=== PATIENT | male | born 1950 | race African-American/Black ===

== ENCOUNTER 2019-11-19 11:55 | Inpatient (IN) | payer MEDICARE, OTHER ==
[~2019-11-19] VITALS: Ht 177.8 cm; Wt 108.6 kg
[~2019-11-19 11:55] MED LIST: ASPI-482 PO; GABA300C18 PO; HYDR-2145 PO; IBUP-1027 PO; PROVENTIL HFA6.7 G1 IH
[2019-11-19] MEDS ORDERED: MAGNESIUM SULFATE 2GM 50 ML IV ONE (12:15)
[2019-11-19] MEDS ORDERED: methylPREDNISolone SOD SUCC PF 125 MG/2 ML VIAL. IV ONE (12:15)
[2019-11-19] MEDS ORDERED: IPRATRPIUM/ALBUTEROL 0.5/2.5MG 3 ML NEBU. NEB ONE (12:15)
[2019-11-19] MEDS ORDERED: IV NORMAL SALINE 1000ML BAG 1,000 ML IV ONE (12:15)
[2019-11-19 12:21] LABS: BASE EXCESS ABG -8 mmol/L (-3-3); HCO3 ABG 22 mmol/L (21-28); PO2 ABG 405 mmHg (65-108); SAT O2 ABG 99 % (92-99)
[2019-11-19 12:24] LABS: BASO % 1 % (0-3); EOS # 0.4 x10^3/uL (0.0-0.7); EOS % 8 % (0-3); HEMATOCRIT 44.6 % (39.0-53.0); HEMOGLOBIN 14.4 g/dL (13.0-17.5); LYMPH # 1.1 x10^3/uL (1.0-4.8); LYMPH % 24 % (24-48); MEAN CORPUSCULAR HEMOGLOBIN 30 pg (25-35); MEAN CORPUSCULAR HGB CONC 32 g/dL (31-37); MEAN CORPUSCULAR VOLUME 94 fL (79-100); MONO # 0.7 x10^3/uL (0.0-1.1); MONO % 15 % (0-9); NEUT # 2.4 x10^3/uL (1.8-7.7); NEUT % 52 % (31-73); PLATELET COUNT 204 x10^3/uL (140-400); RED BLOOD COUNT 4.76 x10^6/uL (4.30-5.70); RED CELL DISTRIBUTION WIDTH 14.9 % (11.5-14.5); WHITE BLOOD COUNT 4.7 x10^3/uL (4.0-11.0)
[2019-11-19 12:26] LABS: FIO2 ABG 100; PCO2 ABG 63 mmHg (35-46)
--- NOTE | 2019-11-19 12:26 | PHYS DOC ---
Past Medical History Past Medical History: Asthma, Hypertension Adult General Chief Complaint Chief Complaint: SHORTNESS OF BREATH HPI HPI Patient is a 69 year old male with history of hypertension, asthma, chronic renal insufficiency, pulmonary embolism on Eliquis who presents via EMS with complaint of shortness of breath. Patient complaining of shortness of breath several days that getting constant for the last 2 days associated with dry cough without chest pain, fever and chills, sick contact. EMS reported that patient had O2 sats of 70s that increased to 98 with albuterol treatment. Patient had O2 sat of 70s at arrival to ER at room air was started on nonrebreather. Review of Systems Review of Systems Constitutional: Denies fever or chills [] Eyes: Denies change in visual acuity, redness, or eye pain [] HENT: Reports nasal congestion Respiratory: Reports cough and shortness of breath Cardiovascular: No additional information not addressed in HPI [] GI: Denies abdominal pain, nausea, vomiting, bloody stools or diarrhea [] : Denies dysuria or hematuria [] Musculoskeletal: Denies back pain or joint pain [] Integument: Denies rash or skin lesions [] Neurologic: Denies headache, focal weakness or sensory changes [] Endocrine: Denies polyuria or polydipsia [] All other systems were reviewed and found to be within normal limits, except as documented in this note. Current Medications Current Medications Current Medications Medications (Trade) Dose Ordered Sig/Juanis Start Time Stop Time Status Last Admin Dose Admin Albuterol/ Ipratropium (Duoneb) 3 ml 1X ONCE 11/19/19 12:15 11/19/19 12:29 DC 11/19/19 12:25 3 ML Magnesium Sulfate 50 ml @ 25 mls/hr 1X ONCE 11/19/19 12:15 11/19/19 14:14 11/19/19 12:43 25 MLS/HR Methylprednisolone Sodium Succinate (SOLU-Medrol 125MG VIAL) 125 mg 1X ONCE 11/19/19 12:15 11/19/19 12:29 DC 11/19/19 12:43 125 MG Sodium Chloride 1,000 ml @ 1,000 mls/hr 1X ONCE 11/19/19 12:15 11/19/19 13:14 DC 11/19/19 12:43 1,000 MLS/HR Allergies Allergies Allergies Coded Allergies Type Severity Reaction Last Updated Verified lisinopril Allergy Severe angioedema 11/19/19 Yes Physical Exam Physical Exam Constitutional: Well developed, well nourished, moderate distress, non-toxic appearance. [] HENT: Normocephalic, atraumatic, bilateral external ears normal, oropharynx moist, no oral exudates, nose normal. [] Eyes: PERRLA, EOMI, conjunctiva normal, no discharge. [] Neck: Normal range of motion, no tenderness, supple, no stridor. [] Cardiovascular:Heart rate regular rhythm, no murmur [] Lungs & Thorax: Respiratory distress with intercostal retraction and expiratory wheezing Abdomen: Bowel sounds normal, soft, no tenderness, no masses, no pulsatile masses. [] Skin: Warm, dry, no erythema, no rash. [] Back: No tenderness, no CVA tenderness. [] Extremities: No tenderness, no cyanosis, no clubbing, ROM intact, no edema. [] Neurologic: Alert and oriented X 3, normal motor function, normal sensory function, no focal deficits noted. [] Psychologic: Affect normal, judgement normal, mood normal. [] Current Patient Data Vital Signs Vital Signs Date Time Temp Pulse Resp B/P (MAP) Pulse Ox O2 Delivery O2 Flow Rate FiO2 11/19/19 12:35 91 17 163/100 (121) 96 Nasal Cannula 2.0 11/19/19 12:10 98.5 98.5 Lab Values Laboratory Tests Test 11/19/19 12:03 11/19/19 12:06 11/19/19 13:17 White Blood Count 4.7 x10^3/uL (4.0-11.0) Red Blood Count 4.76 x10^6/uL (4.30-5.70) Hemoglobin 14.4 g/dL (13.0-17.5) Hematocrit 44.6 % (39.0-53.0) Mean Corpuscular Volume 94 fL (79-100) Mean Corpuscular Hemoglobin 30 pg (25-35) Mean Corpuscular Hemoglobin Concent 32 g/dL (31-37) Red Cell Distribution Width 14.9 % (11.5-14.5) H Platelet Count 204 x10^3/uL (140-400) Neutrophils (%) (Auto) 52 % (31-73) Lymphocytes (%) (Auto) 24 % (24-48) Monocytes (%) (Auto) 15 % (0-9) H Eosinophils (%) (Auto) 8 % (0-3) H Basophils (%) (Auto) 1 % (0-3) Neutrophils # (Auto) 2.4 x10^3/uL (1.8-7.7) Lymphocytes # (Auto) 1.1 x10^3/uL (1.0-4.8) Monocytes # (Auto) 0.7 x10^3/uL (0.0-1.1) Eosinophils # (Auto) 0.4 x10^3/uL (0.0-0.7) Basophils # (Auto) 0.0 x10^3/uL (0.0-0.2) Prothrombin Time 13.5 SEC (11.7-14.0) Prothrombin Time INR 1.1 (0.8-1.1) Sodium Level 143 mmol/L (136-145) Potassium Level 4.6 mmol/L (3.5-5.1) Chloride Level 109 mmol/L (98-107) H Carbon Dioxide Level 29 mmol/L (21-32) Anion Gap 5 (6-14) L Blood Urea Nitrogen 28 mg/dL (8-26) H Creatinine 2.3 mg/dL (0.7-1.3) H Estimated GFR (Cockcroft-Gault) 34.5 BUN/Creatinine Ratio 12 (6-20) Glucose Level 127 mg/dL (70-99) H Lactic Acid Level 0.7 mmol/L (0.4-2.0) Calcium Level 8.7 mg/dL (8.5-10.1) Magnesium Level 2.0 mg/dL (1.8-2.4) Total Bilirubin 0.3 mg/dL (0.2-1.0) Aspartate Amino Transferase (AST) 26 U/L (15-37) Alanine Aminotransferase (ALT) 18 U/L (16-63) Alkaline Phosphatase 150 U/L (46-116) H Creatine Kinase 239 U/L (39-308) Troponin I Quantitative < 0.017 ng/mL (0.000-0.055) AY-Tol-L-Type Natriuretic Peptide 85 pg/mL (0-124) Total Protein 7.6 g/dL (6.4-8.2) Albumin 3.3 g/dL (3.4-5.0) L Albumin/Globulin Ratio 0.8 (1.0-1.7) L O2 Saturation 99 % (92-99) Arterial Blood pH 7.15 (7.35-7.45) *L Arterial Blood pCO2 at Patient Temp 63 mmHg (35-46) *H Arterial Blood pO2 at Patient Temp 405 mmHg (65-108) H Arterial Blood HCO3 22 mmol/L (21-28) Arterial Blood Base Excess -8 mmol/L (-3-3) L FiO2 100 Influenza Type A Antigen Negative (NEGATIVE) Influenza Type B Antigen Negative (NEGATIVE) Laboratory Tests 11/19/19 12:03 Laboratory Tests 11/19/19 12:03 EKG EKG EKG interpreted by me. EKG at 1208 showed normal sinus rhythm at rate of 93, abnormal left axis deviation, left anterior fascicular block, no acute ST and T- wave elevation. Radiology/Procedures Radiology/Procedures [facility] [address] [place], [place] [id number] IMAGING REPORT Signed PATIENT: JAMIE TEIXEIRA ACCOUNT: [id number] : 1950 LOCATION: ER AGE: 69 SEX: M EXAM STATUS: REG ER ORD. PHYSICIAN: JOSE ALFREDO FERRARI MD REASON: shortness of breath PROCEDURE: PORTABLE CHEST 1V PORTABLE CHEST 1V History: Shortness of breath Comparison: None. Findings: No consolidation or pleural effusion. Normal heart size. No pneumothorax. Impression: 1. No acute cardiopulmonary process. Electronically signed by: Armando Camacho DO (11/19/2019 12:52 PM) [facility] DICTATED and SIGNED BY: ARMANDO CAMACHO DO DATE: 11/19/19 1257 Course & Med Decision Making Course & Med Decision Making Pertinent Labs and Imaging studies reviewed. (See chart for details) Patient of patient in ER showed 69-year-old male patient with history of PE and asthma brought in by EMS because of respiratory distress. Patient started on no nrebreather after ABG was started on nasal cannula with improvement of his condition. Patient did not have leukocytosis or elevation of lactic acid. D- dimer is pending. Chest x-ray did not showed infiltration.Patient requiring admission for further evaluation and treatment. Discussed with Dr. Reyes at 1443 who is in agreement with admission. Discussed findings and plan with p terrence and family, who acknowledge understanding and agreement. Dragon Disclaimer Dragon Disclaimer This electronic medical record was generated, in whole or in part, using a voice recognition dictation system. Departure Departure Impression: Primary Impression: Acute respiratory distress Additional Impressions: Asthma exacerbation Chronic renal insufficiency Disposition: ADMITTED INPATIENT (@1344) Admitting Physician: JERMAIN (Dr. Reyes accepted admission at 1343) Condition: IMPROVED Referrals: NO PCP (PCP) Problem Qualifiers Additional Impressions: Asthma exacerbation Asthma severity: moderate Asthma persistence: unspecified Qualified Codes: J45.901 - Unspecified asthma with (acute) exacerbation Chronic renal insufficiency Chronic kidney disease stage: unspecified stage Qualified Codes: N18.9 - Chronic kidney disease, unspecified JOSE ALFREDO FERRARI MD Nov 19, 2019 12:26
[2019-11-19 12:32] LABS: CALCIUM 8.7 mg/dL (8.5-10.1); CREATININE 2.3 mg/dL (0.7-1.3); GFR 34.5; POTASSIUM 4.6 mmol/L (3.5-5.1); PROTHROMBIN TIME PATIENT 13.5 SEC (11.7-14.0)
[2019-11-19 12:47] LABS: ALBUMIN 3.3 g/dL (3.4-5.0); ALBUMIN/GLOBULIN RATIO 0.8 (1.0-1.7); TOTAL BILIRUBIN 0.3 mg/dL (0.2-1.0); TOTAL PROTEIN 7.6 g/dL (6.4-8.2)
--- NOTE | 2019-11-19 12:55 | RAD ---
PORTABLE CHEST 1V History: Shortness of breath Comparison: None. Findings: No consolidation or pleural effusion. Normal heart size. No pneumothorax. Impression: 1. No acute cardiopulmonary process. Electronically signed by: Armando Camacho DO (11/19/2019 12:52 PM) [facility]
--- NOTE | 2019-11-19 13:43 | PDOC1 ---
History and Physical Date of Admission Date of Admission DATE: 11/19/19 TIME: 13:43 Identification/Chief Complaint Chief Complaint SEEN IN ER , 69 year old male with history of hypertension, asthma, chronic renal insufficiency, pulmonary embolism on Eliquis who presents via EMS with complaint of shortness of breath. complaining of shortness of breath several days that getting constant for the last 2 days associated with dry cough denies chest pain, fever and chills, sick contact. EMS reported that patient had O2 sats of 70s that increased to 98 with albuterol treatment. Patient had O2 sat of 70s at arrival to ER at room air was started on nonrebreather. REPORTS HE HAS BEEN OUT OF HIS COREG X 2 WEEKS Past Medical History Past Medical History Past Medical History Past Medical History Past Medical History: Asthma, Hypertension SOCIAL HISTORY: The patient does not smoke, quit many years ago. Drinks alcohol maybe once a week on average. He is . He lives with his spouse and two children at home. 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 FAMILY HISTORY: htn Cardiovascular: HTN Infectious disease: No pertinent hx Family History Family History: High Cholestrol, Hypertension Social History Smoke: No ALCOHOL: none Drugs: None Current Medications Current Medications Current Medications Albuterol/ Ipratropium (Duoneb) 3 ml 1X ONCE NEB Last administered on 11/19/19at 12:25; Start 11/19/19 at 12:15; Stop 11/19/19 at 12:29; Status DC Methylprednisolone Sodium Succinate (SOLU-Medrol 125MG VIAL) 125 mg 1X ONCE IV Last administered on 11/19/19at 12:43; Start 11/19/19 at 12:15; Stop 11/19/19 at 12:29; Status DC Magnesium Sulfate 50 ml @ 25 mls/hr 1X ONCE IV Last administered on 11/19/19at 12:43; Start 11/19/19 at 12:15; Stop 11/19/19 at 14:14 Sodium Chloride 1,000 ml @ 1,000 mls/hr 1X ONCE IV Last administered on 11/19/19at 12:43; Start 11/19/19 at 12:15; Stop 11/19/19 at 13:14; Status DC Active Scripts Active Reported Proventil Hfa (Albuterol Sulfate) 6.7 Gm Hfa.aer.ad 6.7 Gm IH PRN Hydrochlorothiazide Tablet (Hydrochlorothiazide) 25 Mg Tablet 1 Tab PO DAILY Aspir 81 (Aspirin) 81 Mg Tablet.dr 1 Tab PO DAILY Gabapentin 300 Mg Capsule 300 Mg PO BID Ibuprofen 400 Mg Tablet 400 Mg PO BID PRN Allergies Allergies: Coded Allergies: lisinopril (Verified Allergy, Severe, angioedema, 11/19/19) ROS Review of System Review of Systems Review of Systems Constitutional: Denies fever or chills [] Eyes: Denies change in visual acuity, redness, or eye pain [] HENT: Reports nasal congestion Respiratory: Reports cough and shortness of breath Cardiovascular: No additional information not addressed in HPI [] GI: Denies abdominal pain, nausea, vomiting, bloody stools or diarrhea [] : Denies dysuria or hematuria [] Musculoskeletal: Denies back pain or joint pain [] Integument: Denies rash or skin lesions [] Neurologic: Denies headache, focal weakness or sensory changes [] Endocrine: Denies polyuria or polydipsia [] 14 PT systems were reviewed and found to be within normal limits, except as documented Respiratory: YES: Shortness of breath, Wheezing Physical Exam Physical Exam Physical Exam Physical Exam Constitutional: Well developed, well nourished, MILD distress, non-toxic appearance. [] HENT: Normocephalic, atraumatic, bilateral external ears normal, oropharynx moist, no oral exudates, nose normal. [] Eyes: PERRLA, EOMI, conjunctiva normal, no discharge. [] Neck: Normal range of motion, no tenderness, supple, no stridor. [] Cardiovascular:Heart rate regular rhythm, no murmur [] Lungs & Thorax: Respiratory distress with intercostal retraction and expiratory wheezing Abdomen: Bowel sounds normal, soft, no tenderness, no masses, no pulsatile masses. [] Skin: Warm, dry, no erythema, no rash. [] Back: No tenderness, no CVA tenderness. [] Extremities: No tenderness, no cyanosis, no clubbing, ROM intact, no edema. [] Neurologic: Alert and oriented X 3, normal motor function, normal sensory function, no focal deficits noted. [] Psychologic: Affect normal, judgement normal, mood normal. [] General: Alert, Oriented X3, Cooperative, mild distress HEENT: Atraumatic, EOMI, Mucous membr. moist/pink Heart: RRR Abdomen: Normal bowel sounds, Soft Rectal Exam: not examined PELVIC: Examination not indicated Extremities: No cyanosis Neuro: Normal gait, Normal speech, Sensation intact, Cranial nerves 3-12 NL Psych/Mental Status: Mental status NL, Mood NL Vitals Vitals Vital Signs Date Time Temp Pulse Resp B/P (MAP) Pulse Ox O2 Delivery O2 Flow Rate FiO2 11/19/19 12:35 91 17 163/100 (121) 96 Nasal Cannula 2.0 11/19/19 12:10 98.5 98.5 Labs Labs Laboratory Tests Test 11/19/19 12:03 11/19/19 12:06 White Blood Count 4.7 x10^3/uL (4.0-11.0) Red Blood Count 4.76 x10^6/uL (4.30-5.70) Hemoglobin 14.4 g/dL (13.0-17.5) Hematocrit 44.6 % (39.0-53.0) Mean Corpuscular Volume 94 fL (79-100) Mean Corpuscular Hemoglobin 30 pg (25-35) Mean Corpuscular Hemoglobin Concent 32 g/dL (31-37) Red Cell Distribution Width 14.9 % (11.5-14.5) Platelet Count 204 x10^3/uL (140-400) Neutrophils (%) (Auto) 52 % (31-73) Lymphocytes (%) (Auto) 24 % (24-48) Monocytes (%) (Auto) 15 % (0-9) Eosinophils (%) (Auto) 8 % (0-3) Basophils (%) (Auto) 1 % (0-3) Neutrophils # (Auto) 2.4 x10^3/uL (1.8-7.7) Lymphocytes # (Auto) 1.1 x10^3/uL (1.0-4.8) Monocytes # (Auto) 0.7 x10^3/uL (0.0-1.1) Eosinophils # (Auto) 0.4 x10^3/uL (0.0-0.7) Basophils # (Auto) 0.0 x10^3/uL (0.0-0.2) Prothrombin Time 13.5 SEC (11.7-14.0) Prothromb Time International Ratio 1.1 (0.8-1.1) Sodium Level 143 mmol/L (136-145) Potassium Level 4.6 mmol/L (3.5-5.1) Chloride Level 109 mmol/L (98-107) Carbon Dioxide Level 29 mmol/L (21-32) Anion Gap 5 (6-14) Blood Urea Nitrogen 28 mg/dL (8-26) Creatinine 2.3 mg/dL (0.7-1.3) Estimated GFR (Cockcroft-Gault) 34.5 BUN/Creatinine Ratio 12 (6-20) Glucose Level 127 mg/dL (70-99) Lactic Acid Level 0.7 mmol/L (0.4-2.0) Calcium Level 8.7 mg/dL (8.5-10.1) Magnesium Level 2.0 mg/dL (1.8-2.4) Total Bilirubin 0.3 mg/dL (0.2-1.0) Aspartate Amino Transf (AST/SGOT) 26 U/L (15-37) Alanine Aminotransferase (ALT/SGPT) 18 U/L (16-63) Alkaline Phosphatase 150 U/L (46-116) Creatine Kinase 239 U/L (39-308) Troponin I Quantitative < 0.017 ng/mL (0.000-0.055) LC-Ung-O-Type Natriuretic Peptide 85 pg/mL (0-124) Total Protein 7.6 g/dL (6.4-8.2) Albumin 3.3 g/dL (3.4-5.0) Albumin/Globulin Ratio 0.8 (1.0-1.7) O2 Saturation 99 % (92-99) Arterial Blood pH 7.15 (7.35-7.45) Arterial Blood pCO2 at Patient Temp 63 mmHg (35-46) Arterial Blood pO2 at Patient Temp 405 mmHg (65-108) Arterial Blood HCO3 22 mmol/L (21-28) Arterial Blood Base Excess -8 mmol/L (-3-3) FiO2 100 Laboratory Tests Test 11/19/19 12:03 11/19/19 12:06 White Blood Count 4.7 x10^3/uL (4.0-11.0) Red Blood Count 4.76 x10^6/uL (4.30-5.70) Hemoglobin 14.4 g/dL (13.0-17.5) Hematocrit 44.6 % (39.0-53.0) Mean Corpuscular Volume 94 fL (79-100) Mean Corpuscular Hemoglobin 30 pg (25-35) Mean Corpuscular Hemoglobin Concent 32 g/dL (31-37) Red Cell Distribution Width 14.9 % (11.5-14.5) Platelet Count 204 x10^3/uL (140-400) Neutrophils (%) (Auto) 52 % (31-73) Lymphocytes (%) (Auto) 24 % (24-48) Monocytes (%) (Auto) 15 % (0-9) Eosinophils (%) (Auto) 8 % (0-3) Basophils (%) (Auto) 1 % (0-3) Neutrophils # (Auto) 2.4 x10^3/uL (1.8-7.7) Lymphocytes # (Auto) 1.1 x10^3/uL (1.0-4.8) Monocytes # (Auto) 0.7 x10^3/uL (0.0-1.1) Eosinophils # (Auto) 0.4 x10^3/uL (0.0-0.7) Basophils # (Auto) 0.0 x10^3/uL (0.0-0.2) Prothrombin Time 13.5 SEC (11.7-14.0) Prothromb Time International Ratio 1.1 (0.8-1.1) Sodium Level 143 mmol/L (136-145) Potassium Level 4.6 mmol/L (3.5-5.1) Chloride Level 109 mmol/L (98-107) Carbon Dioxide Level 29 mmol/L (21-32) Anion Gap 5 (6-14) Blood Urea Nitrogen 28 mg/dL (8-26) Creatinine 2.3 mg/dL (0.7-1.3) Estimated GFR (Cockcroft-Gault) 34.5 BUN/Creatinine Ratio 12 (6-20) Glucose Level 127 mg/dL (70-99) Lactic Acid Level 0.7 mmol/L (0.4-2.0) Calcium Level 8.7 mg/dL (8.5-10.1) Magnesium Level 2.0 mg/dL (1.8-2.4) Total Bilirubin 0.3 mg/dL (0.2-1.0) Aspartate Amino Transf (AST/SGOT) 26 U/L (15-37) Alanine Aminotransferase (ALT/SGPT) 18 U/L (16-63) Alkaline Phosphatase 150 U/L (46-116) Creatine Kinase 239 U/L (39-308) Troponin I Quantitative < 0.017 ng/mL (0.000-0.055) FO-Hbf-Q-Type Natriuretic Peptide 85 pg/mL (0-124) Total Protein 7.6 g/dL (6.4-8.2) Albumin 3.3 g/dL (3.4-5.0) Albumin/Globulin Ratio 0.8 (1.0-1.7) O2 Saturation 99 % (92-99) Arterial Blood pH 7.15 (7.35-7.45) Arterial Blood pCO2 at Patient Temp 63 mmHg (35-46) Arterial Blood pO2 at Patient Temp 405 mmHg (65-108) Arterial Blood HCO3 22 mmol/L (21-28) Arterial Blood Base Excess -8 mmol/L (-3-3) FiO2 100 Images Images PORTABLE CHEST 1V History: Shortness of breath Comparison: None. Findings: No consolidation or pleural effusion. Normal heart size. No pneumothorax. Impression: 1. No acute cardiopulmonary process. Electronically signed by: Oxana Rizo DO (11/19/2019 12:52 PM) [facility] DICTATED and SIGNED BY: OXANA RIZO DO DATE: 11/19/19 1252 VTE Prophylaxis Ordered VTE Prophylaxis Devices: Yes VTE Pharmacological Prophylaxi: Yes Assessment/Plan Assessment/Plan Impression: Acute respiratory distress Acute hypercapnic, hypoxic respiratory failure Asthma exacerbation, acute Chronic renal insufficiency, stage 3-4 ELEVATED D-DIMER HX PE ON ELIQUIS? COMPLIANCE ADMITTED tele bed pulm consult albuterol inh soln q 4 hrs STAT V/Q SCAN CONT HOME MEDS ELIQUIS 5 MG PO BID O2 SUPPORT GI PROPHYLAXIS 76 MIN PT EXAM, CHART REVIEW, > 50% OF TIME SPENT WITH EXAM, CHART REVIEW, PT CARE COORDINATION SHERLY POPE MD Nov 19, 2019 13:43
[2019-11-19 13:44] LABS: INFLUENZA A PATIENT NEGATIVE (NEGATIVE); INFLUENZA B PATIENT NEGATIVE (NEGATIVE)
[2019-11-19] MEDS ORDERED: cefTRIAXone IV Push 1 GM VIAL. IVP ONE (14:15)
[2019-11-19] MEDS: IPRATRPIUM/ALBUTEROL 0.5/2.5MG 3 ML NEBU. NEB SCH ×2 (16:20→20:16)
[2019-11-19] MEDS ORDERED: APIX5TAB PO (16:43)
[2019-11-19] MEDS ORDERED: TAMS0.4C97 PO (16:43)
[2019-11-19] MEDS ORDERED: HYDROcodone/APAP 5/325MG 1 TAB TABLET PO PRN (16:45)
--- NOTE | 2019-11-19 16:58 | EKG ---
[facility] [address] [place] [address] Test Date: 2019-11-19 Test Time: 12:08:43 Pat Name: JAMIE TEIXEIRA Department: Room: Gender: M Lapel Padder: : 1950 Requested By: JOSE ALFREDO FERRARI Order Number: [id number] Reading MD: Measurements Intervals [place] Rate: 93 P: 102 VA: 170 QRS: -36 QRSD: 98 T: 90 QT: 370 QTc: 462 Interpretive Statements SINUS RHYTHM ABNORMAL LEFT AXIS DEVIATION LEFT ANTERIOR FASCICULAR BLOCK QRS(T) CONTOUR ABNORMALITY CONSIDER ANTEROSEPTAL MYOCARDIAL DAMAGE T ABNORMALITY IN HIGH LATERAL LEADS ABNORMAL ECG No previous ECG available for comparison
[2019-11-19] MEDS ORDERED: ALBUTEROL SULFATE 2.5 MG/3 ML NEBU. NEB PRN (17:00)
[2019-11-19] MEDS ORDERED: ANTI-COAG MONITOR BY PHARMACY. MC PRN (17:00)
[2019-11-19] MEDS: IV NORMAL SALINE 1000ML BAG 1,000 ML IV SCH (18:08)
--- NOTE | 2019-11-19 18:21 | RAD ---
Ventilation perfusion exam History: Shortness of breath Comparison: None Findings: Ventilation perfusion examination was performed. Ventilation images were acquired after the patient inhaled 10.0 mCi of [id number]. Perfusion images were acquired after the patient was injected with 5.5 mCi of technetium 99m MAA. There is mild heterogeneity of radiotracer on ventilation images. No mismatch perfusion defects noted. Impression: Low probability for pulmonary embolic disease. Electronically signed by: Ector Phillip MD (11/19/2019 6:18 PM) [facility]
[2019-11-19 19:56] VITALS: BP 140/81
[2019-11-19] MEDS: guaiFENesin DM 600/30MG 1 TAB TAB.ER.12H PO PRN (20:32)
[2019-11-19] MEDS: APIXABAN 5 MG TABLET. PO SCH (20:32)
[2019-11-19] MEDS: GABAPENTIN 300 MG CAPSULE. PO SCH (20:32)
[2019-11-19] MEDS: ACETAMINOPHEN 325 MG TABLET. PO PRN (21:14)
[2019-11-19] MEDS: methylPREDNISolone SOD SUCC PF 125 MG/2 ML VIAL. IV SCH (21:14)
[2019-11-19 22:37] VITALS: BP 115/74
[2019-11-20] MEDS: IV NORMAL SALINE 1000ML BAG 1,000 ML IV SCH ×2 (01:27→11:43)
[2019-11-20 03:00] VITALS: BP 135/84
[2019-11-20] MEDS: methylPREDNISolone SOD SUCC PF 125 MG/2 ML VIAL. IV SCH ×3 (06:00→21:05)
[2019-11-20 06:13] LABS: ALBUMIN 2.7 g/dL (3.4-5.0); CALCIUM 8.3 mg/dL (8.5-10.1); CREATININE 1.7 mg/dL (0.7-1.3); GFR 48.9; PHOSPHORUS 2.8 mg/dL (2.6-4.7); POTASSIUM 4.5 mmol/L (3.5-5.1)
[2019-11-20 07:00] VITALS: BP 124/77
[2019-11-20] MEDS: IPRATRPIUM/ALBUTEROL 0.5/2.5MG 3 ML NEBU. NEB SCH ×4 (07:45→20:05)
[2019-11-20] MEDS: APIXABAN 5 MG TABLET. PO SCH ×2 (08:18→21:06)
[2019-11-20] MEDS: TAMSULOSIN 0.4 MG CAP.ER.24H. PO SCH (08:18)
[2019-11-20] MEDS: GABAPENTIN 300 MG CAPSULE. PO SCH ×3 (08:18→21:00)
[2019-11-20] MEDS: ASPIRIN ENTERIC COATED 81 MG TABLET.DR. PO SCH (08:18)
[2019-11-20] MEDS ORDERED: BUPR150T6 PO (08:24)
[2019-11-20] MEDS ORDERED: CARV12.511 PO (08:24)
[2019-11-20] MEDS ORDERED: AMLO10TA8 PO (08:24)
[2019-11-20] MEDS ORDERED: TRAZ-118 PO (08:24)
[2019-11-20] MEDS ORDERED: ATOR80TA72 PO (08:24)
[2019-11-20] MEDS ORDERED: ONDANSETRON PF 4 MG/2 ML VIAL. IVP PRN (10:00)
[2019-11-20] MEDS ORDERED: HYDROcodone/APAP 5/325MG 1 TAB TABLET PO PRN (10:00)
[2019-11-20 11:00] VITALS: BP 119/77
[2019-11-20] MEDS: buPROPion XL 150 MG TAB.ER.24H. PO SCH (11:40)
[2019-11-20] MEDS: hydroCHLOROthiazide 25 MG TABLET PO SCH (11:41)
[2019-11-20] MEDS: amLODIPine BESYLATE 10 MG TABLET PO SCH (11:41)
[2019-11-20] MEDS: CARVEDILOL 12.5 MG TABLET. PO SCH ×2 (11:41→19:28)
--- NOTE | 2019-11-20 14:22 | PDOC ---
PROGRESS NOTES Chief Complaint Chief Complaint Acute respiratory distress Acute hypercapnic, hypoxic respiratory failure Asthma exacerbation, acute Chronic renal insufficiency, stage 3-4 ELEVATED D-DIMER HX PE ON ELIQUIS? COMPLIANCE History of Present Illness History of Present Illness VQ low prob PE CXR no impressive BUT NOT FEELING WELL TO dc today NOt on O2 at home Ate well, i orderd pT and has yet to see pt PUlmo has yet to see pt too PLAn: Await PT, OT, pulmo rounds ok t dc tele OBS criteria only I will leave some Rx on chart Vitals Vitals Vital Signs Date Time Temp Pulse Resp B/P (MAP) Pulse Ox O2 Delivery O2 Flow Rate FiO2 11/20/19 12:45 96 Nasal Cannula 2.0 11/20/19 11:41 69 124/77 11/20/19 11:00 98.0 20 98.0 Physical Exam General: Alert, Oriented X3, Cooperative, mild distress Abdomen: Normal bowel sounds, Soft Extremities: No cyanosis Labs LABS Laboratory Tests Test 11/20/19 05:10 Sodium Level 144 mmol/L (136-145) Potassium Level 4.5 mmol/L (3.5-5.1) Chloride Level 107 mmol/L (98-107) Carbon Dioxide Level 23 mmol/L (21-32) Anion Gap 14 (6-14) Blood Urea Nitrogen 26 mg/dL (8-26) Creatinine 1.7 mg/dL (0.7-1.3) Estimated GFR (Cockcroft-Gault) 48.9 Glucose Level 128 mg/dL (70-99) Calcium Level 8.3 mg/dL (8.5-10.1) Phosphorus Level 2.8 mg/dL (2.6-4.7) Albumin 2.7 g/dL (3.4-5.0) Review of Systems Review of Systems weak, soa on exertion? no CP, all esle 14 opt neg Assessment and Plan Assessmemt and Plan Problems Medical Problems: (1) Acute respiratory distress Status: Acute (2) Asthma exacerbation Status: Acute (3) Chronic renal insufficiency Status: Acute Comment Review of Relevant I have reviewed the following items steve (where applicable) has been applied. Labs Laboratory Tests Test 11/19/19 12:03 11/19/19 12:06 11/19/19 13:17 11/20/19 05:10 White Blood Count 4.7 x10^3/uL (4.0-11.0) Red Blood Count 4.76 x10^6/uL (4.30-5.70) Hemoglobin 14.4 g/dL (13.0-17.5) Hematocrit 44.6 % (39.0-53.0) Mean Corpuscular Volume 94 fL (79-100) Mean Corpuscular Hemoglobin 30 pg (25-35) Mean Corpuscular Hemoglobin Concent 32 g/dL (31-37) Red Cell Distribution Width 14.9 % (11.5-14.5) Platelet Count 204 x10^3/uL (140-400) Neutrophils (%) (Auto) 52 % (31-73) Lymphocytes (%) (Auto) 24 % (24-48) Monocytes (%) (Auto) 15 % (0-9) Eosinophils (%) (Auto) 8 % (0-3) Basophils (%) (Auto) 1 % (0-3) Neutrophils # (Auto) 2.4 x10^3/uL (1.8-7.7) Lymphocytes # (Auto) 1.1 x10^3/uL (1.0-4.8) Monocytes # (Auto) 0.7 x10^3/uL (0.0-1.1) Eosinophils # (Auto) 0.4 x10^3/uL (0.0-0.7) Basophils # (Auto) 0.0 x10^3/uL (0.0-0.2) Prothrombin Time 13.5 SEC (11.7-14.0) Prothromb Time International Ratio 1.1 (0.8-1.1) D-Dimer (Renata) 0.79 ug/mlFEU (0.00-0.50) Sodium Level 143 mmol/L (136-145) 144 mmol/L (136-145) Potassium Level 4.6 mmol/L (3.5-5.1) 4.5 mmol/L (3.5-5.1) Chloride Level 109 mmol/L (98-107) 107 mmol/L (98-107) Carbon Dioxide Level 29 mmol/L (21-32) 23 mmol/L (21-32) Anion Gap 5 (6-14) 14 (6-14) Blood Urea Nitrogen 28 mg/dL (8-26) 26 mg/dL (8-26) Creatinine 2.3 mg/dL (0.7-1.3) 1.7 mg/dL (0.7-1.3) Estimated GFR (Cockcroft-Gault) 34.5 48.9 BUN/Creatinine Ratio 12 (6-20) Glucose Level 127 mg/dL (70-99) 128 mg/dL (70-99) Lactic Acid Level 0.7 mmol/L (0.4-2.0) Calcium Level 8.7 mg/dL (8.5-10.1) 8.3 mg/dL (8.5-10.1) Magnesium Level 2.0 mg/dL (1.8-2.4) Total Bilirubin 0.3 mg/dL (0.2-1.0) Aspartate Amino Transf (AST/SGOT) 26 U/L (15-37) Alanine Aminotransferase (ALT/SGPT) 18 U/L (16-63) Alkaline Phosphatase 150 U/L (46-116) Creatine Kinase 239 U/L (39-308) Troponin I Quantitative < 0.017 ng/mL (0.000-0.055) AJ-Wxy-T-Type Natriuretic Peptide 85 pg/mL (0-124) Total Protein 7.6 g/dL (6.4-8.2) Albumin 3.3 g/dL (3.4-5.0) 2.7 g/dL (3.4-5.0) Albumin/Globulin Ratio 0.8 (1.0-1.7) O2 Saturation 99 % (92-99) Arterial Blood pH 7.15 (7.35-7.45) Arterial Blood pCO2 at Patient Temp 63 mmHg (35-46) Arterial Blood pO2 at Patient Temp 405 mmHg (65-108) Arterial Blood HCO3 22 mmol/L (21-28) Arterial Blood Base Excess -8 mmol/L (-3-3) FiO2 100 Influenza Type A Antigen Negative (NEGATIVE) Influenza Type B Antigen Negative (NEGATIVE) Phosphorus Level 2.8 mg/dL (2.6-4.7) Laboratory Tests Test 11/20/19 05:10 Sodium Level 144 mmol/L (136-145) Potassium Level 4.5 mmol/L (3.5-5.1) Chloride Level 107 mmol/L (98-107) Carbon Dioxide Level 23 mmol/L (21-32) Anion Gap 14 (6-14) Blood Urea Nitrogen 26 mg/dL (8-26) Creatinine 1.7 mg/dL (0.7-1.3) Estimated GFR (Cockcroft-Gault) 48.9 Glucose Level 128 mg/dL (70-99) Calcium Level 8.3 mg/dL (8.5-10.1) Phosphorus Level 2.8 mg/dL (2.6-4.7) Albumin 2.7 g/dL (3.4-5.0) Microbiology 11/19/19 Blood Culture - Preliminary, Resulted NO GROWTH AFTER 1 DAY Medications Current Medications Albuterol/ Ipratropium (Duoneb) 3 ml 1X ONCE NEB Last administered on 11/19/19at 12:25; Start 11/19/19 at 12:15; Stop 11/19/19 at 12:29; Status DC Methylprednisolone Sodium Succinate (SOLU-Medrol 125MG VIAL) 125 mg 1X ONCE IV Last administered on 11/19/19at 12:43; Start 11/19/19 at 12:15; Stop 11/19/19 at 12:29; Status DC Magnesium Sulfate 50 ml @ 25 mls/hr 1X ONCE IV Last administered on 11/19/19at 12:43; Start 11/19/19 at 12:15; Stop 11/19/19 at 14:14; Status DC Sodium Chloride 1,000 ml @ 1,000 mls/hr 1X ONCE IV Last administered on 11/19/19at 12:43; Start 11/19/19 at 12:15; Stop 11/19/19 at 13:14; Status DC Ceftriaxone Sodium (Rocephin) 1 gm 1X ONCE IVP Last administered on 11/19/19at 14:18; Start 11/19/19 at 14:15; Stop 11/19/19 at 14:16; Status DC Sodium Chloride 1,000 ml @ 100 mls/hr Q10H IV Last administered on 11/20/19at 11:43; Start 11/19/19 at 14:02; Stop 11/20/19 at 14:01; Status DC Albuterol/ Ipratropium (Duoneb) 3 ml RTQID NEB Last administered on 11/20/19at 12:45; Start 11/19/19 at 16:00; Stop 11/20/19 at 15:59 Apixaban (Eliquis) 5 mg BID PO Last administered on 11/20/19at 08:18; Start 11/19/19 at 21:00 Guaifenesin (MUCINEX ER with DM) 2 tab PRN BID PRN PO COUGH Last administered on 11/19/19at 20:32; Start 11/19/19 at 16:45 Acetaminophen/ Hydrocodone Bitart (Lortab 5/325) 1 tab PRN Q4HRS PRN PO PAIN; Start 11/19/19 at 16:45; Status Cancel Info (Anti-Coagulation Monitoring By Pharmacy) 1 each PRN DAILY PRN MC SEE COMMENTS; Start 11/19/19 at 17:00 Aspirin (Ecotrin) 81 mg DAILY PO Last administered on 11/20/19at 08:18; Start 11/20/19 at 09:00 Gabapentin (Neurontin) 300 mg TID PO Last administered on 11/20/19at 08:18; Start 11/19/19 at 21:00 Hydrochlorothiazide (Hydrodiuril) 25 mg DAILY PO Last administered on 11/20/19at 11:41; Start 11/20/19 at 09:00 Tamsulosin HCl (Flomax) 0.4 mg DAILY PO Last administered on 11/20/19at 08:18; Start 11/20/19 at 09:00 Albuterol Sulfate (Ventolin Neb Soln) 2.5 mg PRN Q4HRS PRN NEB SHORTNESS OF BREATH; Start 11/19/19 at 17:00 Methylprednisolone Sodium Succinate (SOLU-Medrol 125MG VIAL) 100 mg Q8HRS IV Last administered on 11/20/19at 06:00; Start 11/19/19 at 22:00 Acetaminophen (Tylenol) 650 mg PRN Q6HRS PRN PO MILD PAIN 1-3 Last administered on 11/19/19at 21:14; Start 11/19/19 at 20:45 Ondansetron HCl (Zofran) 4 mg PRN Q6HRS PRN IVP NAUSEA/VOMITING; Start 11/20/19 at 10:00 Amlodipine Besylate (Norvasc) 10 mg DAILY PO Last administered on 11/20/19at 11:41; Start 11/20/19 at 10:30 Bupropion HCl (Wellbutrin Xl) 150 mg DAILYWBKFT PO Last administered on 11/20/19at 11:40; Start 11/20/19 at 10:30 Carvedilol (Coreg) 12.5 mg BIDWMEALS PO Last administered on 11/20/19at 11:41; Start 11/20/19 at 10:30 Trazodone HCl (Desyrel) 50 mg HS PO ; Start 11/20/19 at 21:00 Atorvastatin Calcium (Lipitor) 80 mg QHS PO ; Start 11/20/19 at 21:00 Acetaminophen/ Hydrocodone Bitart (Lortab 5/325) 1 tab PRN Q4HRS PRN PO MODERATE - SEVERE PAIN; Start 11/20/19 at 10:00 Active Scripts Active Reported Bupropion Xl (Bupropion Hcl) 150 Mg Tab.er.24h 1 Tab PO DAILYWBKFT Trazodone Hcl 50 Mg Tablet 50 Mg PO HS Carvedilol (Carvedilol) 12.5 Mg Tablet 12.5 Mg PO BIDWMEALS Atorvastatin Calcium 80 Mg Tablet 80 Mg PO DAILY Amlodipine Besylate 10 Mg Tablet 10 Mg PO DAILY Eliquis (Apixaban) 5 Mg Tablet 5 Mg PO BID Flomax (Tamsulosin Hcl) 0.4 Mg Cap.er.24h 1 Cap PO DAILY Proventil Hfa (Albuterol Sulfate) 6.7 Gm Hfa.aer.ad 6.7 Gm IH PRN Hydrochlorothiazide Tablet (Hydrochlorothiazide) 25 Mg Tablet 1 Tab PO DAILY Aspir 81 (Aspirin) 81 Mg Tablet.dr 1 Tab PO DAILY Gabapentin (Gabapentin) 300 Mg Capsule 300 Mg PO TID Vitals/I & O Vital Sign - Last 24 Hours 11/19/19 11/19/19 11/19/19 11/19/19 15:00 16:21 19:56 20:00 Temp 97.8 97.8 Pulse 78 Resp 18 B/P (MAP) 140/81 (100) Pulse Ox 96 94 O2 Delivery Nasal Cannula Nasal Cannula Nasal Cannula Nasal Cannula O2 Flow Rate 2.0 3.0 2.0 2.0 11/19/19 11/19/19 11/19/19 11/20/19 20:16 22:37 23:59 03:00 Temp 97.9 97.6 97.9 97.6 Pulse 83 67 Resp 19 18 B/P (MAP) 115/74 (88) 135/84 (101) Pulse Ox 96 96 98 O2 Delivery Nasal Cannula Nasal Cannula Room Air Nasal Cannula O2 Flow Rate 3.0 2.0 2.0 11/20/19 11/20/19 11/20/19 11/20/19 07:00 07:45 11:00 11:41 Temp 97.5 98.0 97.5 98.0 Pulse 69 82 69 Resp 20 20 B/P (MAP) 124/77 (93) 119/77 (91) 124/77 Pulse Ox 97 97 95 O2 Delivery Nasal Cannula Nasal Cannula Nasal Cannula O2 Flow Rate 2.0 2.0 2.0 11/20/19 11/20/19 11:41 12:45 Pulse 69 B/P (MAP) 124/77 Pulse Ox 96 O2 Delivery Nasal Cannula O2 Flow Rate 2.0 Intake and Output 11/19/19 11/19/19 11/20/19 15:00 23:00 07:00 Intake Total 200 ml 1200 ml Balance 200 ml 1200 ml JANETT WHITE MD Nov 20, 2019 14:22
[2019-11-20 15:00] VITALS: BP 119/63
--- NOTE | 2019-11-20 15:33 | NUR ---
SS following for discharge planning. SS reviewed pt chart. Pt is from home with family and is currently requiring oxygen. PT recommended [facility] unit. SS met with pt to discuss discharge planning and [facility] unit. Pt declined [facility] unit and reported that he wanted to return to home with family. SS discussed option of home healthcare. Pt declined home healthcare as well. SS will continue to follow for discharge planning.
--- NOTE | 2019-11-20 18:09 | PDOC ---
PULMONARY PROGRESS NOTES Vitals Vital Signs Date Time Temp Pulse Resp B/P (MAP) Pulse Ox O2 Delivery O2 Flow Rate FiO2 11/20/19 15:54 96 Nasal Cannula 2.0 11/20/19 15:00 97.7 74 20 119/63 (81) 97.7 Labs Laboratory Tests Test 11/19/19 12:03 11/19/19 12:06 11/19/19 13:17 11/20/19 05:10 White Blood Count 4.7 x10^3/uL (4.0-11.0) Red Blood Count 4.76 x10^6/uL (4.30-5.70) Hemoglobin 14.4 g/dL (13.0-17.5) Hematocrit 44.6 % (39.0-53.0) Mean Corpuscular Volume 94 fL (79-100) Mean Corpuscular Hemoglobin 30 pg (25-35) Mean Corpuscular Hemoglobin Concent 32 g/dL (31-37) Red Cell Distribution Width 14.9 % (11.5-14.5) Platelet Count 204 x10^3/uL (140-400) Neutrophils (%) (Auto) 52 % (31-73) Lymphocytes (%) (Auto) 24 % (24-48) Monocytes (%) (Auto) 15 % (0-9) Eosinophils (%) (Auto) 8 % (0-3) Basophils (%) (Auto) 1 % (0-3) Neutrophils # (Auto) 2.4 x10^3/uL (1.8-7.7) Lymphocytes # (Auto) 1.1 x10^3/uL (1.0-4.8) Monocytes # (Auto) 0.7 x10^3/uL (0.0-1.1) Eosinophils # (Auto) 0.4 x10^3/uL (0.0-0.7) Basophils # (Auto) 0.0 x10^3/uL (0.0-0.2) Prothrombin Time 13.5 SEC (11.7-14.0) Prothromb Time International Ratio 1.1 (0.8-1.1) D-Dimer (Renata) 0.79 ug/mlFEU (0.00-0.50) Sodium Level 143 mmol/L (136-145) 144 mmol/L (136-145) Potassium Level 4.6 mmol/L (3.5-5.1) 4.5 mmol/L (3.5-5.1) Chloride Level 109 mmol/L (98-107) 107 mmol/L (98-107) Carbon Dioxide Level 29 mmol/L (21-32) 23 mmol/L (21-32) Anion Gap 5 (6-14) 14 (6-14) Blood Urea Nitrogen 28 mg/dL (8-26) 26 mg/dL (8-26) Creatinine 2.3 mg/dL (0.7-1.3) 1.7 mg/dL (0.7-1.3) Estimated GFR (Cockcroft-Gault) 34.5 48.9 BUN/Creatinine Ratio 12 (6-20) Glucose Level 127 mg/dL (70-99) 128 mg/dL (70-99) Lactic Acid Level 0.7 mmol/L (0.4-2.0) Calcium Level 8.7 mg/dL (8.5-10.1) 8.3 mg/dL (8.5-10.1) Magnesium Level 2.0 mg/dL (1.8-2.4) Total Bilirubin 0.3 mg/dL (0.2-1.0) Aspartate Amino Transf (AST/SGOT) 26 U/L (15-37) Alanine Aminotransferase (ALT/SGPT) 18 U/L (16-63) Alkaline Phosphatase 150 U/L (46-116) Creatine Kinase 239 U/L (39-308) Troponin I Quantitative < 0.017 ng/mL (0.000-0.055) AU-Ofk-A-Type Natriuretic Peptide 85 pg/mL (0-124) Total Protein 7.6 g/dL (6.4-8.2) Albumin 3.3 g/dL (3.4-5.0) 2.7 g/dL (3.4-5.0) Albumin/Globulin Ratio 0.8 (1.0-1.7) O2 Saturation 99 % (92-99) Arterial Blood pH 7.15 (7.35-7.45) Arterial Blood pCO2 at Patient Temp 63 mmHg (35-46) Arterial Blood pO2 at Patient Temp 405 mmHg (65-108) Arterial Blood HCO3 22 mmol/L (21-28) Arterial Blood Base Excess -8 mmol/L (-3-3) FiO2 100 Influenza Type A Antigen Negative (NEGATIVE) Influenza Type B Antigen Negative (NEGATIVE) Phosphorus Level 2.8 mg/dL (2.6-4.7) Laboratory Tests Test 11/20/19 05:10 Sodium Level 144 mmol/L (136-145) Potassium Level 4.5 mmol/L (3.5-5.1) Chloride Level 107 mmol/L (98-107) Carbon Dioxide Level 23 mmol/L (21-32) Anion Gap 14 (6-14) Blood Urea Nitrogen 26 mg/dL (8-26) Creatinine 1.7 mg/dL (0.7-1.3) Estimated GFR (Cockcroft-Gault) 48.9 Glucose Level 128 mg/dL (70-99) Calcium Level 8.3 mg/dL (8.5-10.1) Phosphorus Level 2.8 mg/dL (2.6-4.7) Albumin 2.7 g/dL (3.4-5.0) Medications Active Scripts Medications Dose Route/Sig Max Daily Dose Days Date Category Bupropion Xl (Bupropion Hcl) 150 Mg Tab.er.24h 1 Tab PO DAILYWBKFT 11/20/19 Reported Trazodone Hcl 50 Mg Tablet 50 Mg PO HS 11/20/19 Reported Carvedilol (Carvedilol) 12.5 Mg Tablet 12.5 Mg PO BIDWMEALS 11/20/19 Reported Atorvastatin Calcium 80 Mg Tablet 80 Mg PO DAILY 11/20/19 Reported Amlodipine Besylate 10 Mg Tablet 10 Mg PO DAILY 11/20/19 Reported Eliquis (Apixaban) 5 Mg Tablet 5 Mg PO BID 11/19/19 Reported Flomax (Tamsulosin Hcl) 0.4 Mg Cap.er.24h 1 Cap PO DAILY 11/19/19 Reported Proventil Hfa (Albuterol Sulfate) 6.7 Gm Hfa.aer.ad 6.7 Gm IH PRN 03/10/16 Reported Hydrochlorothiazide Tablet (Hydrochlorothiazide) 25 Mg Tablet 1 Tab PO DAILY 03/10/16 Reported Aspir 81 (Aspirin) 81 Mg Tablet.dr 1 Tab PO DAILY 03/10/16 Reported Gabapentin (Gabapentin) 300 Mg Capsule 300 Mg PO TID 03/10/16 Reported Impression . ACUTE RESP FAILURE AECOPD AGREE WITH CURRENT RXS VAN PAYNE MD Nov 20, 2019 18:09
[2019-11-20 19:35] VITALS: BP 137/75
--- NOTE | 2019-11-20 20:01 | NUR ---
PT WILL BE TRANSFERRED TO ROOM 414. REPORT CALLED TO NURSE.
--- NOTE | 2019-11-20 20:10 | NUR ---
pt transferred to room 414 from [facility] , POC resumed. made comfortable in bed, call light within pt's reach.
[2019-11-20] MEDS ORDERED: ATORVASTATIN CALCIUM 40 MG TABLET. PO SCH (21:00)
[2019-11-20] MEDS ORDERED: traZODone 50 MG TABLET. PO SCH (21:00)
[2019-11-20] MEDS: ACETAMINOPHEN 325 MG TABLET. PO PRN (21:06)
[2019-11-20] MEDS: guaiFENesin DM 600/30MG 1 TAB TAB.ER.12H PO PRN (21:06)
[2019-11-20 23:00] VITALS: BP 137/66
--- NOTE | 2019-11-20 23:50 | CONS ---
DATE OF CONSULTATION: 11/20/2019 REASON FOR CONSULTATION: The patient is seen in pulmonary consultation at the request of Dr. Reyes for increasing shortness of air. HISTORY OF PRESENT ILLNESS: The patient is a 69-year-old with long-standing history of tobacco use, quit in June of 2019. He has never been diagnosed with COPD. He did have asthma as a child, not as a young adult or a teenager, and presented with increasing shortness of breath. He "felt" like he was going to . He also has some chest pain. He did have a sick contact. He has some fever, chills, and cough productive of discolored sputum. PAST MEDICAL HISTORY: Remarkable for COPD; tobacco dependent, quit in 2019; asthma as a child; chronic renal insufficiency; and pulmonary emboli, on Eliquis. SOCIAL HISTORY: Quit tobacco in 2019. FAMILY HISTORY: Hypertension and hyperlipidemia. REVIEW OF SYSTEMS: CONSTITUTIONAL: Some fever. EYES: No changes in visual acuity. HENT: No nasal congestion or sore throat. PULMONARY: As indicated above. CARDIOVASCULAR: No chest pain. No pressure. GASTROINTESTINAL: No nausea, vomiting, or diarrhea. GENITOURINARY: No dysuria or frequency. MUSCULOSKELETAL: No localized muscle aches or joint pains. SKIN: No new skin rashes. NEUROLOGIC: No headaches, diplopia, or blurred vision. PHYSICAL EXAMINATION: GENERAL: The patient appeared to be stated age. VITAL SIGNS: Vital signs are stable. O2 saturation was greater than 92%, currently on 2 liters. At one point, the patient was on 15 liters. When he came into the Emergency Room, he had saturations of 70%. HEENT: Eyes, the sclerae were nonicteric. NECK: Jugular venous distention was not elevated. No lymphadenopathy. CHEST: Full expansion. LUNGS: Adequate air flow with expiratory wheeze, prolonged expiratory phase. CARDIOVASCULAR: Regular rate and rhythm with S1, S2. No S3. ABDOMEN: Soft, nontender, and nondistended. EXTREMITIES: No clubbing, cyanosis, or edema. NEUROLOGICAL: The patient was awake, alert, and following commands. A detailed neuro exam was not performed. LABORATORY DATA: Lung scan reviewed, low probability. Chest x-ray revealed no acute process. White count was not elevated. Serology for influenza was negative. Arterial blood gas revealed a pH of 7.15, PaCO2 of 63, and pO2 of 45. IMPRESSION: 1. Acute hypoxemic hypercapnic respiratory failure. 2. Acute exacerbation of chronic obstructive pulmonary disease. 3. Negative influenza screen. 4. Acute renal failure on top of chronic renal failure. 5. Protein malnutrition, present upon admission. PLAN: 1. Recommend treatment for acute exacerbation of COPD. 2. CT scan revealed low probability. The patient was on Eliquis at home. I doubt that he had a recurrent PE. 3. The patient is informed on the importance of avoiding inhalation of any secondhand smoke. 4. Continue home meds. 5. Once discharged, follow up in my office. I do appreciate the privilege in sharing in the patient's care. VAN PAYNE MD DR: YENI/amelia JOB#: [id number] / [id number]
[2019-11-21 03:00] VITALS: BP 145/87
[2019-11-21 04:54] LABS: BASO % 0 % (0-3); EOS % 0 % (0-3); HEMATOCRIT 40.3 % (39.0-53.0); HEMOGLOBIN 12.8 g/dL (13.0-17.5); LYMPH # 0.6 x10^3/uL (1.0-4.8); LYMPH % 4 % (24-48); MEAN CORPUSCULAR HEMOGLOBIN 30 pg (25-35); MEAN CORPUSCULAR HGB CONC 32 g/dL (31-37); MEAN CORPUSCULAR VOLUME 93 fL (79-100); MONO # 0.4 x10^3/uL (0.0-1.1); MONO % 3 % (0-9); NEUT % 93 % (31-73); PLATELET COUNT 184 x10^3/uL (140-400); RED BLOOD COUNT 4.33 x10^6/uL (4.30-5.70); RED CELL DISTRIBUTION WIDTH 14.5 % (11.5-14.5)
[2019-11-21 05:21] LABS: CALCIUM 8.4 mg/dL (8.5-10.1); CREATININE 1.7 mg/dL (0.7-1.3); GFR 48.9; POTASSIUM 4.4 mmol/L (3.5-5.1)
[2019-11-21] MEDS: methylPREDNISolone SOD SUCC PF 125 MG/2 ML VIAL. IV SCH ×2 (06:29→14:12)
[2019-11-21] MEDS: guaiFENesin DM 600/30MG 1 TAB TAB.ER.12H PO PRN (06:53)
[2019-11-21 07:00] VITALS: BP 124/81
[2019-11-21] MEDS: buPROPion XL 150 MG TAB.ER.24H. PO SCH (08:00)
[2019-11-21] MEDS: ASPIRIN ENTERIC COATED 81 MG TABLET.DR. PO SCH (08:18)
[2019-11-21] MEDS: TAMSULOSIN 0.4 MG CAP.ER.24H. PO SCH (08:18)
[2019-11-21] MEDS: GABAPENTIN 300 MG CAPSULE. PO SCH ×2 (08:19→14:11)
[2019-11-21] MEDS: CARVEDILOL 12.5 MG TABLET. PO SCH ×2 (08:19→15:57)
[2019-11-21] MEDS: amLODIPine BESYLATE 10 MG TABLET PO SCH (08:19)
[2019-11-21] MEDS: APIXABAN 5 MG TABLET. PO SCH (08:19)
[2019-11-21] MEDS: hydroCHLOROthiazide 25 MG TABLET PO SCH (08:20)
[2019-11-21 08:21] LABS: % BANDS 12 % (0-9); % LYMPHS 4 % (24-48); % MONOS 2 % (0-10); % SEGS 82 % (35-66)
[2019-11-21 08:22] LABS: PLT ESTIMATE ADEQUATE (ADEQUATE)
[2019-11-21] MEDS: IPRATRPIUM/ALBUTEROL 0.5/2.5MG 3 ML NEBU. NEB SCH ×3 (08:36→15:20)
--- NOTE | 2019-11-21 08:43 | PDOC ---
PULMONARY PROGRESS NOTES Vitals Vital Signs Date Time Temp Pulse Resp B/P (MAP) Pulse Ox O2 Delivery O2 Flow Rate FiO2 11/21/19 08:36 96 Nasal Cannula 2.0 11/21/19 08:19 70 124/81 11/21/19 03:00 98.1 20 98.1 Labs Laboratory Tests Test 11/19/19 12:03 11/19/19 12:06 11/19/19 13:17 11/20/19 05:10 White Blood Count 4.7 x10^3/uL (4.0-11.0) Red Blood Count 4.76 x10^6/uL (4.30-5.70) Hemoglobin 14.4 g/dL (13.0-17.5) Hematocrit 44.6 % (39.0-53.0) Mean Corpuscular Volume 94 fL (79-100) Mean Corpuscular Hemoglobin 30 pg (25-35) Mean Corpuscular Hemoglobin Concent 32 g/dL (31-37) Red Cell Distribution Width 14.9 % (11.5-14.5) Platelet Count 204 x10^3/uL (140-400) Neutrophils (%) (Auto) 52 % (31-73) Lymphocytes (%) (Auto) 24 % (24-48) Monocytes (%) (Auto) 15 % (0-9) Eosinophils (%) (Auto) 8 % (0-3) Basophils (%) (Auto) 1 % (0-3) Neutrophils # (Auto) 2.4 x10^3/uL (1.8-7.7) Lymphocytes # (Auto) 1.1 x10^3/uL (1.0-4.8) Monocytes # (Auto) 0.7 x10^3/uL (0.0-1.1) Eosinophils # (Auto) 0.4 x10^3/uL (0.0-0.7) Basophils # (Auto) 0.0 x10^3/uL (0.0-0.2) Prothrombin Time 13.5 SEC (11.7-14.0) Prothromb Time International Ratio 1.1 (0.8-1.1) D-Dimer (Renata) 0.79 ug/mlFEU (0.00-0.50) Sodium Level 143 mmol/L (136-145) 144 mmol/L (136-145) Potassium Level 4.6 mmol/L (3.5-5.1) 4.5 mmol/L (3.5-5.1) Chloride Level 109 mmol/L (98-107) 107 mmol/L (98-107) Carbon Dioxide Level 29 mmol/L (21-32) 23 mmol/L (21-32) Anion Gap 5 (6-14) 14 (6-14) Blood Urea Nitrogen 28 mg/dL (8-26) 26 mg/dL (8-26) Creatinine 2.3 mg/dL (0.7-1.3) 1.7 mg/dL (0.7-1.3) Estimated GFR (Cockcroft-Gault) 34.5 48.9 BUN/Creatinine Ratio 12 (6-20) Glucose Level 127 mg/dL (70-99) 128 mg/dL (70-99) Lactic Acid Level 0.7 mmol/L (0.4-2.0) Calcium Level 8.7 mg/dL (8.5-10.1) 8.3 mg/dL (8.5-10.1) Magnesium Level 2.0 mg/dL (1.8-2.4) Total Bilirubin 0.3 mg/dL (0.2-1.0) Aspartate Amino Transf (AST/SGOT) 26 U/L (15-37) Alanine Aminotransferase (ALT/SGPT) 18 U/L (16-63) Alkaline Phosphatase 150 U/L (46-116) Creatine Kinase 239 U/L (39-308) Troponin I Quantitative < 0.017 ng/mL (0.000-0.055) HE-Gsl-Q-Type Natriuretic Peptide 85 pg/mL (0-124) Total Protein 7.6 g/dL (6.4-8.2) Albumin 3.3 g/dL (3.4-5.0) 2.7 g/dL (3.4-5.0) Albumin/Globulin Ratio 0.8 (1.0-1.7) O2 Saturation 99 % (92-99) Arterial Blood pH 7.15 (7.35-7.45) Arterial Blood pCO2 at Patient Temp 63 mmHg (35-46) Arterial Blood pO2 at Patient Temp 405 mmHg (65-108) Arterial Blood HCO3 22 mmol/L (21-28) Arterial Blood Base Excess -8 mmol/L (-3-3) FiO2 100 Influenza Type A Antigen Negative (NEGATIVE) Influenza Type B Antigen Negative (NEGATIVE) Phosphorus Level 2.8 mg/dL (2.6-4.7) Test 11/21/19 04:30 White Blood Count 14.0 x10^3/uL (4.0-11.0) Red Blood Count 4.33 x10^6/uL (4.30-5.70) Hemoglobin 12.8 g/dL (13.0-17.5) Hematocrit 40.3 % (39.0-53.0) Mean Corpuscular Volume 93 fL (79-100) Mean Corpuscular Hemoglobin 30 pg (25-35) Mean Corpuscular Hemoglobin Concent 32 g/dL (31-37) Red Cell Distribution Width 14.5 % (11.5-14.5) Platelet Count 184 x10^3/uL (140-400) Neutrophils (%) (Auto) 93 % (31-73) Lymphocytes (%) (Auto) 4 % (24-48) Monocytes (%) (Auto) 3 % (0-9) Eosinophils (%) (Auto) 0 % (0-3) Basophils (%) (Auto) 0 % (0-3) Neutrophils # (Auto) 13.0 x10^3/uL (1.8-7.7) Lymphocytes # (Auto) 0.6 x10^3/uL (1.0-4.8) Monocytes # (Auto) 0.4 x10^3/uL (0.0-1.1) Eosinophils # (Auto) 0.0 x10^3/uL (0.0-0.7) Basophils # (Auto) 0.0 x10^3/uL (0.0-0.2) Segmented Neutrophils % 82 % (35-66) Band Neutrophils % 12 % (0-9) Lymphocytes % 4 % (24-48) Monocytes % 2 % (0-10) Platelet Estimate Adequate (ADEQUATE) Sodium Level 140 mmol/L (136-145) Potassium Level 4.4 mmol/L (3.5-5.1) Chloride Level 107 mmol/L (98-107) Carbon Dioxide Level 26 mmol/L (21-32) Anion Gap 7 (6-14) Blood Urea Nitrogen 30 mg/dL (8-26) Creatinine 1.7 mg/dL (0.7-1.3) Estimated GFR (Cockcroft-Gault) 48.9 Glucose Level 139 mg/dL (70-99) Calcium Level 8.4 mg/dL (8.5-10.1) Laboratory Tests Test 11/21/19 04:30 White Blood Count 14.0 x10^3/uL (4.0-11.0) Red Blood Count 4.33 x10^6/uL (4.30-5.70) Hemoglobin 12.8 g/dL (13.0-17.5) Hematocrit 40.3 % (39.0-53.0) Mean Corpuscular Volume 93 fL (79-100) Mean Corpuscular Hemoglobin 30 pg (25-35) Mean Corpuscular Hemoglobin Concent 32 g/dL (31-37) Red Cell Distribution Width 14.5 % (11.5-14.5) Platelet Count 184 x10^3/uL (140-400) Neutrophils (%) (Auto) 93 % (31-73) Lymphocytes (%) (Auto) 4 % (24-48) Monocytes (%) (Auto) 3 % (0-9) Eosinophils (%) (Auto) 0 % (0-3) Basophils (%) (Auto) 0 % (0-3) Neutrophils # (Auto) 13.0 x10^3/uL (1.8-7.7) Lymphocytes # (Auto) 0.6 x10^3/uL (1.0-4.8) Monocytes # (Auto) 0.4 x10^3/uL (0.0-1.1) Eosinophils # (Auto) 0.0 x10^3/uL (0.0-0.7) Basophils # (Auto) 0.0 x10^3/uL (0.0-0.2) Segmented Neutrophils % 82 % (35-66) Band Neutrophils % 12 % (0-9) Lymphocytes % 4 % (24-48) Monocytes % 2 % (0-10) Platelet Estimate Adequate (ADEQUATE) Sodium Level 140 mmol/L (136-145) Potassium Level 4.4 mmol/L (3.5-5.1) Chloride Level 107 mmol/L (98-107) Carbon Dioxide Level 26 mmol/L (21-32) Anion Gap 7 (6-14) Blood Urea Nitrogen 30 mg/dL (8-26) Creatinine 1.7 mg/dL (0.7-1.3) Estimated GFR (Cockcroft-Gault) 48.9 Glucose Level 139 mg/dL (70-99) Calcium Level 8.4 mg/dL (8.5-10.1) Medications Active Scripts Medications Dose Route/Sig Max Daily Dose Days Date Category Bupropion Xl (Bupropion Hcl) 150 Mg Tab.er.24h 1 Tab PO [id number] 11/20/19 Reported Trazodone Hcl 50 Mg Tablet 50 Mg PO HS 11/20/19 Reported Carvedilol (Carvedilol) 12.5 Mg Tablet 12.5 Mg PO BIDWMEALS 11/20/19 Reported Atorvastatin Calcium 80 Mg Tablet 80 Mg PO DAILY 11/20/19 Reported Amlodipine Besylate 10 Mg Tablet 10 Mg PO DAILY 11/20/19 Reported Eliquis (Apixaban) 5 Mg Tablet 5 Mg PO BID 11/19/19 Reported Flomax (Tamsulosin Hcl) 0.4 Mg Cap.er.24h 1 Cap PO DAILY 11/19/19 Reported Proventil Hfa (Albuterol Sulfate) 6.7 Gm Hfa.aer.ad 6.7 Gm IH PRN 03/10/16 Reported Hydrochlorothiazide Tablet (Hydrochlorothiazide) 25 Mg Tablet 1 Tab PO DAILY 03/10/16 Reported Aspir 81 (Aspirin) 81 Mg Tablet.dr 1 Tab PO DAILY 03/10/16 Reported Gabapentin (Gabapentin) 300 Mg Capsule 300 Mg PO TID 03/10/16 Reported Impression . IMPRESSION: 1. Acute hypoxemic hypercapnic respiratory failure. 2. Acute exacerbation of chronic obstructive pulmonary disease. 3. Negative influenza screen. 4. Acute renal failure on top of chronic renal failure. 5. Protein malnutrition, present upon admission. Plan . 1. Recommend treatment for acute exacerbation of COPD. 2. CT scan revealed low probability. The patient was on Eliquis at home. I doubt that he had a recurrent PE. 3. The patient is informed on the importance of avoiding inhalation of any secondhand smoke. 4. Continue home meds. 5. Once discharged, follow up in my office. VAN PAYNE MD Nov 21, 2019 08:42
--- NOTE | 2019-11-21 08:47 | SNU/HH DC ---
DISCHARGE ORDERS DISCHARGE INFORMATION: DISCHARGE DATE: Nov 21, 2019 FINAL DIAGNOSIS Problems Medical Problems: (1) Acute respiratory distress Status: Acute (2) Asthma exacerbation Status: Acute (3) Chronic renal insufficiency Status: Acute CONDITION ON DISCHARGE: Stable CODE STATUS: Code Status: Full GROUP HOME: SNF STAY <30 DAYS: Yes HOSPICE: HOSPICE: No HOSPICE EVAL & TREAT: No LTAC: ADMIT TO LTAC: No POST DISCHARGE ORDERS: ACTIVITY ORDERS: Resume previous activity DIET AFTER DISCHARGE: Regular CHECKS AFTER DISCHARGE: CHECKS AFTER DISCHARGE: Check blood press - daily, Check blood sugar, ac/hs FOLLOW-UP: PHYSICIAN FOLLOW-UP: pulmo upon snu dc TREATMENT/EQUIPMENT ORDERS: Physical Therapy For: Evalulation/Treatment Occupational Therapy For: Evaluation/Treatment DISCHARGE MEDICATIONS: Home Meds Reported Medications Bupropion Hcl (BUPROPION XL) 150 Mg Tab.er.24h, 1 TAB PO DAILYWBKFT for ukn, #30 TAB 2 Refills 11/20/19 Trazodone Hcl (TRAZODONE HCL) 50 Mg Tablet, 50 MG PO HS for mood or sleep, TAB 11/20/19 Carvedilol (CARVEDILOL ) 12.5 Mg Tablet, 12.5 MG PO BIDWMEALS for CARDIAC, TAB 11/20/19 Atorvastatin Calcium (Atorvastatin Calcium) 80 Mg Tablet, 80 MG PO DAILY for FOR HIGH CHOLESTEROL, TAB 11/20/19 Amlodipine Besylate (AMLODIPINE BESYLATE) 10 Mg Tablet, 10 MG PO DAILY for HTN, TAB 11/20/19 Apixaban (ELIQUIS) 5 Mg Tablet, 5 MG PO BID for PE, TAB 11/19/19 Tamsulosin Hcl (FLOMAX) 0.4 Mg Cap.er.24h, 1 CAP PO DAILY for BPH, #30 CAP 11 Refills 11/19/19 Albuterol Sulfate (Proventil Hfa) 6.7 Gm Hfa.aer.ad, 6.7 GM IH PRN for SHORTNESS OF BREATH 03/10/16 Hydrochlorothiazide (HYDROCHLOROTHIAZIDE TABLET ) 25 Mg Tablet, 1 TAB PO DAILY, #30 TAB 5 Refills 03/10/16 Aspirin (ASPIR 81) 81 Mg Tablet.dr, 1 TAB PO DAILY, #30 TAB 5 Refills 03/10/16 Gabapentin (GABAPENTIN ) 300 Mg Capsule, 300 MG PO TID for neuropathy, CAP 03/10/16 Discontinued Reported Medications Ibuprofen (IBUPROFEN) 400 Mg Tablet, 400 MG PO BID PRN for INFLAMMATION, TAB 03/10/16 JANETT WHITE MD Nov 21, 2019 08:47
--- NOTE | 2019-11-21 10:26 | PDOC ---
PULMONARY PROGRESS NOTES Subjective pt still soa with exertion slightly better Vitals Vital Signs Date Time Temp Pulse Resp B/P (MAP) Pulse Ox O2 Delivery O2 Flow Rate FiO2 11/21/19 08:36 96 Nasal Cannula 2.0 11/21/19 08:19 70 124/81 11/21/19 07:00 97.6 18 97.6 ROS: No Nausea, No Chest Pain, No Abdominal Pain, No Increase Cough General: Alert Lungs: Wheezing Cardiovascular: S1, S2 Abdomen: Soft Neuro Exam: Alert Extremities: No Edema Skin: Warm Labs Laboratory Tests Test 11/19/19 12:03 11/19/19 12:06 11/19/19 13:17 11/20/19 05:10 White Blood Count 4.7 x10^3/uL (4.0-11.0) Red Blood Count 4.76 x10^6/uL (4.30-5.70) Hemoglobin 14.4 g/dL (13.0-17.5) Hematocrit 44.6 % (39.0-53.0) Mean Corpuscular Volume 94 fL (79-100) Mean Corpuscular Hemoglobin 30 pg (25-35) Mean Corpuscular Hemoglobin Concent 32 g/dL (31-37) Red Cell Distribution Width 14.9 % (11.5-14.5) Platelet Count 204 x10^3/uL (140-400) Neutrophils (%) (Auto) 52 % (31-73) Lymphocytes (%) (Auto) 24 % (24-48) Monocytes (%) (Auto) 15 % (0-9) Eosinophils (%) (Auto) 8 % (0-3) Basophils (%) (Auto) 1 % (0-3) Neutrophils # (Auto) 2.4 x10^3/uL (1.8-7.7) Lymphocytes # (Auto) 1.1 x10^3/uL (1.0-4.8) Monocytes # (Auto) 0.7 x10^3/uL (0.0-1.1) Eosinophils # (Auto) 0.4 x10^3/uL (0.0-0.7) Basophils # (Auto) 0.0 x10^3/uL (0.0-0.2) Prothrombin Time 13.5 SEC (11.7-14.0) Prothromb Time International Ratio 1.1 (0.8-1.1) D-Dimer (Renata) 0.79 ug/mlFEU (0.00-0.50) Sodium Level 143 mmol/L (136-145) 144 mmol/L (136-145) Potassium Level 4.6 mmol/L (3.5-5.1) 4.5 mmol/L (3.5-5.1) Chloride Level 109 mmol/L (98-107) 107 mmol/L (98-107) Carbon Dioxide Level 29 mmol/L (21-32) 23 mmol/L (21-32) Anion Gap 5 (6-14) 14 (6-14) Blood Urea Nitrogen 28 mg/dL (8-26) 26 mg/dL (8-26) Creatinine 2.3 mg/dL (0.7-1.3) 1.7 mg/dL (0.7-1.3) Estimated GFR (Cockcroft-Gault) 34.5 48.9 BUN/Creatinine Ratio 12 (6-20) Glucose Level 127 mg/dL (70-99) 128 mg/dL (70-99) Lactic Acid Level 0.7 mmol/L (0.4-2.0) Calcium Level 8.7 mg/dL (8.5-10.1) 8.3 mg/dL (8.5-10.1) Magnesium Level 2.0 mg/dL (1.8-2.4) Total Bilirubin 0.3 mg/dL (0.2-1.0) Aspartate Amino Transf (AST/SGOT) 26 U/L (15-37) Alanine Aminotransferase (ALT/SGPT) 18 U/L (16-63) Alkaline Phosphatase 150 U/L (46-116) Creatine Kinase 239 U/L (39-308) Troponin I Quantitative < 0.017 ng/mL (0.000-0.055) NN-Grj-I-Type Natriuretic Peptide 85 pg/mL (0-124) Total Protein 7.6 g/dL (6.4-8.2) Albumin 3.3 g/dL (3.4-5.0) 2.7 g/dL (3.4-5.0) Albumin/Globulin Ratio 0.8 (1.0-1.7) O2 Saturation 99 % (92-99) Arterial Blood pH 7.15 (7.35-7.45) Arterial Blood pCO2 at Patient Temp 63 mmHg (35-46) Arterial Blood pO2 at Patient Temp 405 mmHg (65-108) Arterial Blood HCO3 22 mmol/L (21-28) Arterial Blood Base Excess -8 mmol/L (-3-3) FiO2 100 Influenza Type A Antigen Negative (NEGATIVE) Influenza Type B Antigen Negative (NEGATIVE) Phosphorus Level 2.8 mg/dL (2.6-4.7) Test 11/21/19 04:30 White Blood Count 14.0 x10^3/uL (4.0-11.0) Red Blood Count 4.33 x10^6/uL (4.30-5.70) Hemoglobin 12.8 g/dL (13.0-17.5) Hematocrit 40.3 % (39.0-53.0) Mean Corpuscular Volume 93 fL (79-100) Mean Corpuscular Hemoglobin 30 pg (25-35) Mean Corpuscular Hemoglobin Concent 32 g/dL (31-37) Red Cell Distribution Width 14.5 % (11.5-14.5) Platelet Count 184 x10^3/uL (140-400) Neutrophils (%) (Auto) 93 % (31-73) Lymphocytes (%) (Auto) 4 % (24-48) Monocytes (%) (Auto) 3 % (0-9) Eosinophils (%) (Auto) 0 % (0-3) Basophils (%) (Auto) 0 % (0-3) Neutrophils # (Auto) 13.0 x10^3/uL (1.8-7.7) Lymphocytes # (Auto) 0.6 x10^3/uL (1.0-4.8) Monocytes # (Auto) 0.4 x10^3/uL (0.0-1.1) Eosinophils # (Auto) 0.0 x10^3/uL (0.0-0.7) Basophils # (Auto) 0.0 x10^3/uL (0.0-0.2) Segmented Neutrophils % 82 % (35-66) Band Neutrophils % 12 % (0-9) Lymphocytes % 4 % (24-48) Monocytes % 2 % (0-10) Platelet Estimate Adequate (ADEQUATE) Sodium Level 140 mmol/L (136-145) Potassium Level 4.4 mmol/L (3.5-5.1) Chloride Level 107 mmol/L (98-107) Carbon Dioxide Level 26 mmol/L (21-32) Anion Gap 7 (6-14) Blood Urea Nitrogen 30 mg/dL (8-26) Creatinine 1.7 mg/dL (0.7-1.3) Estimated GFR (Cockcroft-Gault) 48.9 Glucose Level 139 mg/dL (70-99) Calcium Level 8.4 mg/dL (8.5-10.1) Laboratory Tests Test 11/21/19 04:30 White Blood Count 14.0 x10^3/uL (4.0-11.0) Red Blood Count 4.33 x10^6/uL (4.30-5.70) Hemoglobin 12.8 g/dL (13.0-17.5) Hematocrit 40.3 % (39.0-53.0) Mean Corpuscular Volume 93 fL (79-100) Mean Corpuscular Hemoglobin 30 pg (25-35) Mean Corpuscular Hemoglobin Concent 32 g/dL (31-37) Red Cell Distribution Width 14.5 % (11.5-14.5) Platelet Count 184 x10^3/uL (140-400) Neutrophils (%) (Auto) 93 % (31-73) Lymphocytes (%) (Auto) 4 % (24-48) Monocytes (%) (Auto) 3 % (0-9) Eosinophils (%) (Auto) 0 % (0-3) Basophils (%) (Auto) 0 % (0-3) Neutrophils # (Auto) 13.0 x10^3/uL (1.8-7.7) Lymphocytes # (Auto) 0.6 x10^3/uL (1.0-4.8) Monocytes # (Auto) 0.4 x10^3/uL (0.0-1.1) Eosinophils # (Auto) 0.0 x10^3/uL (0.0-0.7) Basophils # (Auto) 0.0 x10^3/uL (0.0-0.2) Segmented Neutrophils % 82 % (35-66) Band Neutrophils % 12 % (0-9) Lymphocytes % 4 % (24-48) Monocytes % 2 % (0-10) Platelet Estimate Adequate (ADEQUATE) Sodium Level 140 mmol/L (136-145) Potassium Level 4.4 mmol/L (3.5-5.1) Chloride Level 107 mmol/L (98-107) Carbon Dioxide Level 26 mmol/L (21-32) Anion Gap 7 (6-14) Blood Urea Nitrogen 30 mg/dL (8-26) Creatinine 1.7 mg/dL (0.7-1.3) Estimated GFR (Cockcroft-Gault) 48.9 Glucose Level 139 mg/dL (70-99) Calcium Level 8.4 mg/dL (8.5-10.1) Medications Active Scripts Medications Dose Route/Sig Max Daily Dose Days Date Category Bupropion Xl (Bupropion Hcl) 150 Mg Tab.er.24h 1 Tab PO DAILYWBKFT 11/20/19 Reported Trazodone Hcl 50 Mg Tablet 50 Mg PO HS 11/20/19 Reported Carvedilol (Carvedilol) 12.5 Mg Tablet 12.5 Mg PO BIDWMEALS 11/20/19 Reported Atorvastatin Calcium 80 Mg Tablet 80 Mg PO DAILY 11/20/19 Reported Amlodipine Besylate 10 Mg Tablet 10 Mg PO DAILY 11/20/19 Reported Eliquis (Apixaban) 5 Mg Tablet 5 Mg PO BID 11/19/19 Reported Flomax (Tamsulosin Hcl) 0.4 Mg Cap.er.24h 1 Cap PO DAILY 11/19/19 Reported Proventil Hfa (Albuterol Sulfate) 6.7 Gm Hfa.aer.ad 6.7 Gm IH PRN 03/10/16 Reported Hydrochlorothiazide Tablet (Hydrochlorothiazide) 25 Mg Tablet 1 Tab PO DAILY 03/10/16 Reported Aspir 81 (Aspirin) 81 Mg Tablet.dr 1 Tab PO DAILY 03/10/16 Reported Gabapentin (Gabapentin) 300 Mg Capsule 300 Mg PO TID 03/10/16 Reported Impression . IMPRESSION: 1. Acute hypoxemic hypercapnic respiratory failure. 2. Acute exacerbation of chronic obstructive pulmonary disease. 3. Negative influenza screen. 4. Acute renal failure on top of chronic renal failure. 5. Protein malnutrition, present upon admission. Plan . home today after a 6m walk follow up with me in office start symbicort continue duonebs taper pred doxy d/w VAN Whitten MD Nov 21, 2019 10:26
--- NOTE | 2019-11-21 10:57 | PDOC3 ---
Discharge Summary Visit Information Date of Admission: Nov 19, 2019 Date of Discharge: Nov 21, 2019 Admitting Diagnosis Comment: Acute respiratory distress Acute hypercapnic, hypoxic respiratory failure Asthma exacerbation, acute Chronic renal insufficiency, stage 3-4 ELEVATED D-DIMER HX PE ON ELIQUIS? COMPLIANCE Final Diagnosis Problems Medical Problems: (1) Acute respiratory distress Status: Acute (2) Asthma exacerbation Status: Acute (3) Chronic renal insufficiency Status: Acute Brief Hospital Course Allergies Allergies Coded Allergies Type Severity Reaction Last Updated Verified lisinopril Allergy Severe angioedema 11/19/19 Yes Vital Signs Vital Signs Date Time Temp Pulse Resp B/P (MAP) Pulse Ox O2 Delivery O2 Flow Rate FiO2 11/21/19 08:36 96 Nasal Cannula 2.0 11/21/19 08:19 70 124/81 11/21/19 07:00 97.6 18 97.6 Lab Results Laboratory Tests Test 11/19/19 12:03 11/19/19 12:06 11/19/19 13:17 11/20/19 05:10 White Blood Count 4.7 x10^3/uL (4.0-11.0) Red Blood Count 4.76 x10^6/uL (4.30-5.70) Hemoglobin 14.4 g/dL (13.0-17.5) Hematocrit 44.6 % (39.0-53.0) Mean Corpuscular Volume 94 fL (79-100) Mean Corpuscular Hemoglobin 30 pg (25-35) Mean Corpuscular Hemoglobin Concent 32 g/dL (31-37) Red Cell Distribution Width 14.9 % (11.5-14.5) Platelet Count 204 x10^3/uL (140-400) Neutrophils (%) (Auto) 52 % (31-73) Lymphocytes (%) (Auto) 24 % (24-48) Monocytes (%) (Auto) 15 % (0-9) Eosinophils (%) (Auto) 8 % (0-3) Basophils (%) (Auto) 1 % (0-3) Neutrophils # (Auto) 2.4 x10^3/uL (1.8-7.7) Lymphocytes # (Auto) 1.1 x10^3/uL (1.0-4.8) Monocytes # (Auto) 0.7 x10^3/uL (0.0-1.1) Eosinophils # (Auto) 0.4 x10^3/uL (0.0-0.7) Basophils # (Auto) 0.0 x10^3/uL (0.0-0.2) Prothrombin Time 13.5 SEC (11.7-14.0) Prothromb Time International Ratio 1.1 (0.8-1.1) D-Dimer (Renata) 0.79 ug/mlFEU (0.00-0.50) Sodium Level 143 mmol/L (136-145) 144 mmol/L (136-145) Potassium Level 4.6 mmol/L (3.5-5.1) 4.5 mmol/L (3.5-5.1) Chloride Level 109 mmol/L (98-107) 107 mmol/L (98-107) Carbon Dioxide Level 29 mmol/L (21-32) 23 mmol/L (21-32) Anion Gap 5 (6-14) 14 (6-14) Blood Urea Nitrogen 28 mg/dL (8-26) 26 mg/dL (8-26) Creatinine 2.3 mg/dL (0.7-1.3) 1.7 mg/dL (0.7-1.3) Estimated GFR (Cockcroft-Gault) 34.5 48.9 BUN/Creatinine Ratio 12 (6-20) Glucose Level 127 mg/dL (70-99) 128 mg/dL (70-99) Lactic Acid Level 0.7 mmol/L (0.4-2.0) Calcium Level 8.7 mg/dL (8.5-10.1) 8.3 mg/dL (8.5-10.1) Magnesium Level 2.0 mg/dL (1.8-2.4) Total Bilirubin 0.3 mg/dL (0.2-1.0) Aspartate Amino Transf (AST/SGOT) 26 U/L (15-37) Alanine Aminotransferase (ALT/SGPT) 18 U/L (16-63) Alkaline Phosphatase 150 U/L (46-116) Creatine Kinase 239 U/L (39-308) Troponin I Quantitative < 0.017 ng/mL (0.000-0.055) MZ-Vxh-S-Type Natriuretic Peptide 85 pg/mL (0-124) Total Protein 7.6 g/dL (6.4-8.2) Albumin 3.3 g/dL (3.4-5.0) 2.7 g/dL (3.4-5.0) Albumin/Globulin Ratio 0.8 (1.0-1.7) O2 Saturation 99 % (92-99) Arterial Blood pH 7.15 (7.35-7.45) Arterial Blood pCO2 at Patient Temp 63 mmHg (35-46) Arterial Blood pO2 at Patient Temp 405 mmHg (65-108) Arterial Blood HCO3 22 mmol/L (21-28) Arterial Blood Base Excess -8 mmol/L (-3-3) FiO2 100 Influenza Type A Antigen Negative (NEGATIVE) Influenza Type B Antigen Negative (NEGATIVE) Phosphorus Level 2.8 mg/dL (2.6-4.7) Test 11/21/19 04:30 White Blood Count 14.0 x10^3/uL (4.0-11.0) Red Blood Count 4.33 x10^6/uL (4.30-5.70) Hemoglobin 12.8 g/dL (13.0-17.5) Hematocrit 40.3 % (39.0-53.0) Mean Corpuscular Volume 93 fL (79-100) Mean Corpuscular Hemoglobin 30 pg (25-35) Mean Corpuscular Hemoglobin Concent 32 g/dL (31-37) Red Cell Distribution Width 14.5 % (11.5-14.5) Platelet Count 184 x10^3/uL (140-400) Neutrophils (%) (Auto) 93 % (31-73) Lymphocytes (%) (Auto) 4 % (24-48) Monocytes (%) (Auto) 3 % (0-9) Eosinophils (%) (Auto) 0 % (0-3) Basophils (%) (Auto) 0 % (0-3) Neutrophils # (Auto) 13.0 x10^3/uL (1.8-7.7) Lymphocytes # (Auto) 0.6 x10^3/uL (1.0-4.8) Monocytes # (Auto) 0.4 x10^3/uL (0.0-1.1) Eosinophils # (Auto) 0.0 x10^3/uL (0.0-0.7) Basophils # (Auto) 0.0 x10^3/uL (0.0-0.2) Segmented Neutrophils % 82 % (35-66) Band Neutrophils % 12 % (0-9) Lymphocytes % 4 % (24-48) Monocytes % 2 % (0-10) Platelet Estimate Adequate (ADEQUATE) Sodium Level 140 mmol/L (136-145) Potassium Level 4.4 mmol/L (3.5-5.1) Chloride Level 107 mmol/L (98-107) Carbon Dioxide Level 26 mmol/L (21-32) Anion Gap 7 (6-14) Blood Urea Nitrogen 30 mg/dL (8-26) Creatinine 1.7 mg/dL (0.7-1.3) Estimated GFR (Cockcroft-Gault) 48.9 Glucose Level 139 mg/dL (70-99) Calcium Level 8.4 mg/dL (8.5-10.1) Laboratory Tests Test 11/21/19 04:30 White Blood Count 14.0 x10^3/uL (4.0-11.0) Red Blood Count 4.33 x10^6/uL (4.30-5.70) Hemoglobin 12.8 g/dL (13.0-17.5) Hematocrit 40.3 % (39.0-53.0) Mean Corpuscular Volume 93 fL (79-100) Mean Corpuscular Hemoglobin 30 pg (25-35) Mean Corpuscular Hemoglobin Concent 32 g/dL (31-37) Red Cell Distribution Width 14.5 % (11.5-14.5) Platelet Count 184 x10^3/uL (140-400) Neutrophils (%) (Auto) 93 % (31-73) Lymphocytes (%) (Auto) 4 % (24-48) Monocytes (%) (Auto) 3 % (0-9) Eosinophils (%) (Auto) 0 % (0-3) Basophils (%) (Auto) 0 % (0-3) Neutrophils # (Auto) 13.0 x10^3/uL (1.8-7.7) Lymphocytes # (Auto) 0.6 x10^3/uL (1.0-4.8) Monocytes # (Auto) 0.4 x10^3/uL (0.0-1.1) Eosinophils # (Auto) 0.0 x10^3/uL (0.0-0.7) Basophils # (Auto) 0.0 x10^3/uL (0.0-0.2) Segmented Neutrophils % 82 % (35-66) Band Neutrophils % 12 % (0-9) Lymphocytes % 4 % (24-48) Monocytes % 2 % (0-10) Platelet Estimate Adequate (ADEQUATE) Sodium Level 140 mmol/L (136-145) Potassium Level 4.4 mmol/L (3.5-5.1) Chloride Level 107 mmol/L (98-107) Carbon Dioxide Level 26 mmol/L (21-32) Anion Gap 7 (6-14) Blood Urea Nitrogen 30 mg/dL (8-26) Creatinine 1.7 mg/dL (0.7-1.3) Estimated GFR (Cockcroft-Gault) 48.9 Glucose Level 139 mg/dL (70-99) Calcium Level 8.4 mg/dL (8.5-10.1) Brief Hospital Course Mr. Pedersen is a 69 old [sex] who presented with [ ]SOA and hypoxia, hx PE on eliquis and VQ is low prob, CXR normal, AGreeable to SNU, seen by pulmo, encouraged compliance and cleared to dc We wrote some rx 6 mw prior to dc RX on chart, pt seen and examined dc < 30 requests filemon [email or web address] Discharge Information Condition at Discharge: Improved, Stable Disposition/Orders: Other (snu) Scheduled Amlodipine Besylate (Amlodipine Besylate) 10 Mg Tablet, 10 MG PO DAILY for HTN, (Reported) Entered as Reported by: TONY LOMELI on 11/20/19 0824 Last Taken: Unknown Dose on Unknown Date & Time Last Action: Continued on 11/20/19 0950 by JANETT WHITE Apixaban (Eliquis) 5 Mg Tablet, 5 MG PO BID for PE, (Reported) Entered as Reported by: TONY LOMELI on 11/19/19 1643 Last Taken: Unknown Dose on 11/18/19 Last Action: Continued on 11/19/19 16 46 by TONY LOMELI Aspirin (Aspir 81) 81 Mg Tablet., 1 TAB PO DAILY, #30 Ref 5 (Reported) Entered as Reported by: MARGARITA SALOMON on 03/10/16 1428 Last Taken: Unknown Dose on 11/18/19 Last Action: Continued on 11/19/19 1650 by SHERLY POPE MD Atorvastatin Calcium (Atorvastatin Calcium) 80 Mg Tablet, 80 MG PO DAILY for FOR HIGH CHOLESTEROL, (Reported) Entered as Reported by: TONY LOMELI on 11/20/19823 Last Taken: Unknown Dose on Unknown Date & Time Last Action: Converted on 11/20/1950 by JANETT WHITE Bupropion Hcl (Bupropion Xl) 150 Mg Tab.er.24h, 1 TAB PO DAILYWBKFT for ukn, #30 Ref 2 (Reported) Entered as Reported by: TONY LOMELI on 11/20/19823 Last Taken: Unknown Dose on Unknown Date & Time Last Action: Continued on 11/20/1950 by JANETT WHITE Carvedilol (Carvedilol ) 12.5 Mg Tablet, 12.5 MG PO BIDWMEALS for CARDIAC, (Reported) Entered as Reported by: TONY LOMELI on 11/20/19823 Last Taken: Unknown Dose on Unknown Date & Time Last Action: Continued on 11/20/1950 by JANETT WHITE Gabapentin (Gabapentin ) 300 Mg Capsule, 300 MG PO TID for neuropathy, (Reported) Entered as Reported by: MARGARITA SALOMON on 03/10/161427 Last Action: Continued on 11/19/191649 by SHERLY POPE MD Hydrochlorothiazide (Hydrochlorothiazide Tablet ) 25 Mg Tablet, 1 TAB PO DAILY, #30 Ref 5 (Reported) Entered as Reported by: MARGARITA SALOMON on 03/10/161427 Last Taken: Unknown Dose on Unknown Date & Time Last Action: Continued on 11/19/191649 by SHERLY POPE MD Tamsulosin Hcl (Flomax) 0.4 Mg Cap.er.24h, 1 CAP PO DAILY for BPH, #30 Ref 11 (Reported) Entered as Reported by: TONY LOMELI on 11/19/19 1643 Last Taken: Unknown Dose on 11/18/19 Last Action: Continued on 11/19/191649 by SHERLY POPE MD Trazodone Hcl (Trazodone Hcl) 50 Mg Tablet, 50 MG PO HS for mood or sleep, (Reported) Entered as Reported by: TONY LOMELI on 11/20/19823 Last Taken: Unknown Dose on Unknown Date & Time Last Action: Continued on 11/20/19 0950 by JANETT WHITE Scheduled PRN Albuterol Sulfate (Proventil Hfa) 6.7 Gm Hfa.aer.ad, 6.7 GM IH for SHORTNESS OF BREATH, (Reported) Entered as Reported by: MARGARITA SALOMON on 03/10/161427 Last Taken: Unknown Dose on 11/19/19 Last Action: Converted on 11/19/191649 by SHERLY POPE MD Discontinued Medications Ibuprofen (Ibuprofen) 400 Mg Tablet, 400 MG PO BID PRN for INFLAMMATION, (Reported) Entered as Reported by: MARGARITA SALOMON on 03/10/161427 Last Action: Discontinued on 11/19/19 1643 by JANETT BEASLEY MD Nov 21, 2019 10:57
[2019-11-21 11:00] VITALS: BP 128/82
--- NOTE | 2019-11-21 11:46 | NUR ---
MARICRUZ following. Discussed with RN. MARICRUZ met with pt, pt is still declining home health and SNU, does not think he needs it. Pt having a 6 minute walk today to determine oxygen needs. MARICRUZ will continue to follow. Addendum: 11/21/19 at 1217 by LATHA ALCANTARA Pt does not need oxygen upon discharge. Pt will discharge home today with self care.
[2019-11-21] MEDS: BENZONATATE 100 MG CAPSULE. PO SCH ×2 (12:03→15:57)
[2019-11-21] MEDS ORDERED: BUDE10.2 IH (14:40)
[2019-11-21 15:00] VITALS: BP 123/75
[2019-11-21 15:57] VITALS: BP 128/82
--- NOTE | 2019-11-21 16:39 | NUR ---
Discharge Note: PT DISCHARGED HOME WITH SELF CARE. PT LEFT FACILITY VIA PRIVATE VEHICLE WITH SPOUSE AND FAMILY. PT STABLE AND ALERT UPON DISCHARGE. PT PIV REMOVED FROM L FA AND R WRIST WITHOUT COMPLICATIONS, BANDAGE APPLIED. PT EDUCATED ABOUT DISCHARGE MEDICATIONS, DISCHARGE INSTRUCTIONS, AND FOLLOW-UP CARE. PT VOICED NO CONCERNS AT THIS TIME. PT LEFT WITH ALL PERSONAL BELONGINGS. PT PRESCRIPTION FOR SYMBICORT CALLED INTO [facility] BEFORE DISCHARGE. PT LEFT WITH ALL PERSONAL BELONGIGNS. JAMIE TEIXEIRA Discharge instructions and discharge home medications reviewed with Patient and a copy given. All questions have been answered and understanding verbalized.
== END 2019-11-21 16:22 | disposition home or self-care (01) | DRG 189 ==
LOC: ER 11:55 → 1 WEST ICU 13:35 → UNDOADMIN 13:35 → 6 SOUTH 14:02 → 4 NORTH 11-20 20:32
PROVIDERS: ADMIT Family Medicine; ATTEND Family Medicine
DX: J96.01 Acute respiratory failure with hypoxia (principal); N17.9 Acute kidney failure, unspecified; J45.901 Unspecified asthma with (acute) exacerbation; N18.4 Chronic kidney disease, stage 4 (severe); J44.1 Chronic obstructive pulmonary disease with (acute) exacerbation; E46 Unspecified protein-calorie malnutrition; J96.02 Acute respiratory failure with hypercapnia; I12.9 Hypertensive chronic kidney disease with stage 1 through stage 4 chronic kidney disease, or unspecified chronic kidney disease; E78.00 Pure hypercholesterolemia, unspecified; G62.9 Polyneuropathy, unspecified; N40.0 Benign prostatic hyperplasia without lower urinary tract symptoms; Z68.34 Body mass index [BMI] 34.0-34.9, adult; Z87.891 Personal history of nicotine dependence; Z87.09 Personal history of other diseases of the respiratory system; Z86.711 Personal history of pulmonary embolism; Z79.82 Long term (current) use of aspirin; Z79.01 Long term (current) use of anticoagulants; Z79.899 Other long term (current) drug therapy; Z88.8 Allergy status to other drugs, medicaments and biological substances; Z82.49 Family history of ischemic heart disease and other diseases of the circulatory system
CPT/HCPCS: 36415; 36600; 71045; 78582; 80048; 80053; 80069; 82550; 82805; 83605; 83735; 83880; 84484; 85007; 85025; 85379; 85610; 87040; 87804; 93005; 94618; 94640; 94760; 96365; 96374; 96375; A9540; A9558; J0696; J2930; J3475; J7030; J7613; J7620; 99285-25; G0378